=== PATIENT | male | born 1985 | race Caucasian/White ===

== ENCOUNTER 2018-07-26 14:54 | Emergency (ER) | payer OTHER ==
[~2018-07-26] VITALS: Ht 177.8 cm; Wt 72.6 kg
[~2018-07-26 14:54] MED LIST: AMOXICILLIN 50500 MG PO
[2018-07-26] MEDS ORDERED: [UNRECOGNIZED DRUG - OTHER] (15:11)
[2018-07-26 15:37] VITALS: BP 129/78
== END 2018-07-26 15:39 | disposition home or self-care (01) ==
LOC: M.ERS 14:54
DX: S00.83XA Contusion of other part of head, initial encounter (principal); F17.210 Nicotine dependence, cigarettes, uncomplicated; W10.9XXA Fall (on) (from) unspecified stairs and steps, initial encounter; Y93.89 Activity, other specified; Y92.89 Other specified places as the place of occurrence of the external cause; Y99.8 Other external cause status

== ENCOUNTER 2018-08-19 18:25 | Emergency (ER) | payer OTHER ==
[~2018-08-19] VITALS: Ht 177.8 cm; Wt 65.8 kg
[~2018-08-19 18:25] MED LIST changes: +[UNRECOGNIZED DRUG - OTHER]
[2018-08-19] MEDS ORDERED: NORCO 5-325 TA1 EACH PO (19:11)
[2018-08-19 19:42] VITALS: BP 138/78
== END 2018-08-19 19:39 | disposition home or self-care (01) ==
LOC: M.ERS 18:25
DX: T22.212A Burn of second degree of left forearm, initial encounter (principal); T20.19XA Burn of first degree of multiple sites of head, face, and neck, initial encounter; T31.0 Burns involving less than 10% of body surface; F17.210 Nicotine dependence, cigarettes, uncomplicated; X19.XXXA Contact with other heat and hot substances, initial encounter; Y93.89 Activity, other specified; Y92.89 Other specified places as the place of occurrence of the external cause; Y99.8 Other external cause status

== ENCOUNTER 2018-12-29 06:10 | Emergency (ER) | payer OTHER ==
[~2018-12-29] VITALS: Ht 177.8 cm; Wt 68.0 kg
[~2018-12-29 06:10] MED LIST changes: +NORCO 5-325 TA1 EACH PO
[2018-12-29 06:14] VITALS: BP 123/83
[2018-12-29] MEDS ORDERED: AUGMENTIN 875-1 EACH PO (06:33)
== END 2018-12-29 06:40 | disposition home or self-care (01) ==
LOC: M.ERS 06:10
DX: L03.115 Cellulitis of right lower limb (principal); F17.210 Nicotine dependence, cigarettes, uncomplicated; Z91.018 Allergy to other foods